=== PATIENT | male | born 1990 | race Caucasian/White ===

== ENCOUNTER 2017-05-03 21:03 | Emergency (ER) | payer MEDICAID, OTHER ==
[~2017-05-03] VITALS: Ht 175.3 cm; Wt 71.2 kg
[2017-05-03 21:09] VITALS: BP 121/72; PULSE 82; RESP 16; TEMP 98.4; O2SAT 99
--- NOTE | 2017-05-03 21:54 | PD ---
HPI . Foot pain Chief Complaint: Skin Problem Time Seen by Provider: 21:19 Travel History International Travel<30 days: No Contact w/Intl Traveler<30days: No Traveled to known affect area: No History of Present Illness HPI 26-year-old male presents to the emergency department for evaluation of pain, swelling and erythema to the fifth digit on the right foot. The patient states the symptoms started a week ago. Patient denies any trauma or injury to the toe. Patient states the pain and swelling started spontaneously. There is a small area that is draining purulent drainage on the plantar aspect of the fifth digit on the right foot. The erythema initially localized in the fifth digit however it is extending upward on the dorsal aspect of the foot. The right foot is neurovascularly intact. The patient is ambulatory. Patient denies any major medical history. Patient denies any drug use. The patient denies any fevers, chills or malaise. The patient denies any chest pain or shortness of breath. PFSH Past Medical History Medical History: Denies Significant Hx Diminished Hearing: No Immunizations Current: Yes Tetanus Vaccination: < 5 Years Influenza Vaccination: No ?: Not Past Surgical History Surgical History: No Previous Surgery Social History Alcohol Use: No Tobacco Use: No Substance Use: No Allergies-Medications (Allergen,Severity, Reaction): Coded Allergies: No Known Allergies (Unverified , 05/03/17) Reported Meds & Prescriptions Reported Meds & Active Scripts Active No Active Prescriptions or Reported Medications Review of Systems Except as stated in HPI: all other systems reviewed are Neg Physical Exam Narrative GENERAL: Well-nourished, well-developed 26-year-old male patient in no acute distress. Nontoxic appearing. SKIN: 0.25 cm area in diameter on the plantar aspect of the fifth digit on the right foot draining purulent drainage. Erythema to the fifth digit on the right foot extending upward on the dorsal aspect of the right foot. HEAD: Normocephalic. Atraumatic. EYES: No scleral icterus. No injection or drainage. NECK: Supple, trachea midline. No JVD or lymphadenopathy. CARDIOVASCULAR: Regular rate and rhythm without murmurs, gallops, or rubs. Pedal pulses 2+ bilaterally. RESPIRATORY: Breath sounds equal bilaterally. No accessory muscle use. GASTROINTESTINAL: Abdomen soft, non-tender, nondistended. MUSCULOSKELETAL: Edema and erythema to the fifth digit on the right toe. BACK: Nontender without obvious deformity. No CVA tenderness. Data Data Last Documented VS Vital Signs Date Time Temp Pulse Resp B/P (MAP) Pulse Ox O2 Delivery O2 Flow Rate FiO2 05/03/17 21:09 98.4 82 16 121/72 (88) 99 Orders Orders Foot, Complete ([id number]) (05/03/17 21:22) Wound Culture And Gram Stain (05/03/17 21:54) MDM Medical Decision Making Medical Screen Exam Complete: Yes Emergency Medical Condition: Yes Differential Diagnosis Differential diagnoses include but are not limited to osteomyelitis, cellulitis , abscess Narrative Course 26-year-old male patient presents emergency department for evaluation of edema, erythema and pain of the fifth digit of the right foot. X-ray of the right foot ordered and pending. Wound culture obtained. Patient has been taking ibuprofen every 6 hours. Patient had ibuprofen prior to arrival. X-ray of the right foot is unremarkable. Patient will be discharged home with Bactrim and Keflex and given instructions to return the emergency Department with any signs or symptoms of worsening infection such as increasing redness, warmth, increasing pain, fevers. Diagnosis Primary Impression: Cellulitis Qualified Codes: L03.031 - Cellulitis of right toe Referrals: Primary Care Physician Patient Instructions: Cellulitis (DC), General Instructions Additional Instructions: Please return to emergency department with any signs or symptoms of worsening infection such as increasing redness, increasing pain, fevers Follow up with your primary care provider. Take medications as prescribed. May use [id number] ibuprofen as needed for pain or swelling. Elevate foot when resting. May use ice for pain control and swelling Med/Other Pt SpecificInfo: Prescription(s) given Scripts Cephalexin (Keflex) 500 Mg Capsule 500 MG PO Q6H for Infection for 10 Days, #40 CAP 0 Refills Prov: Gracie Barber 05/03/17 Sulfamethoxazole-Trimethoprim (Bactrim DS) 800-160 Mg Tab 1 TAB PO BID for Infection for 10 Days, #20 TAB 0 Refills Prov: Gracie Barber 05/03/17 Disposition: 01 DISCHARGE HOME Condition: Stable Gracie Barber May 03, 2017 21:54
--- NOTE | 2017-05-03 22:17 | RADRPT ---
EXAM DATE/TIME: 05/03/2017 21:58 [facility] COMPARISON: No previous studies available for comparison. INDICATIONS : Right foot pain and swelling for 1 week. MEDICAL HISTORY : None. SURGICAL HISTORY : None. ENCOUNTER: Initial ACUITY: 1 week PAIN SCORE: 3/10 LOCATION: Right lateral foot. FINDINGS: No definite fractures, or dislocations are identified. No definite lytic or sclerotic lesion is seen . The joint spaces are well maintained. CONCLUSION: Unremarkable study. Pritesh Padilla MD on May 03, 2017 at 22:15 Board Certified Radiologist. This report was verified electronically.
[2017-05-03] MEDS ORDERED: CEPH-460 PO (22:32)
[2017-05-03] MEDS ORDERED: BACT800T5 PO (22:32)
[2017-05-03] MEDS ORDERED: TRAM50TA PO (22:35)
[2017-05-03] MEDS ORDERED: KETOROLAC TROMETHAMINE 60 MG/2 ML (IM) VIAL IM ONE (23:00)
[2017-05-03] MEDS ORDERED: SULFAMETHOXAZOLE-TRIMETHOPRIM DS 800-160 MG TAB PO ONE (23:00)
[2017-05-03] MEDS ORDERED: CEPHALEXIN MONOHYDRATE 500 MG CAP PO ONE (23:00)
== END 2017-05-03 23:02 | disposition home or self-care (01) ==
LOC: PHEFT 21:03
DX: L03.031 Cellulitis of right toe (principal); B96.4 Proteus (mirabilis) (morganii) as the cause of diseases classified elsewhere; B95.61 Methicillin susceptible Staphylococcus aureus infection as the cause of diseases classified elsewhere
CPT/HCPCS: 73630; 86403; 87070; 87077; 87186; 96372; 99284; J1885; 87205